=== PATIENT | female | born 1960 | race African-American/Black ===

== ENCOUNTER 2018-04-06 20:16 | Inpatient (IN) | payer MEDICAID, OTHER ==
[~2018-04-06] VITALS: Ht 165.1 cm; Wt 49.9 kg
[~2018-04-06 20:16] MED LIST: CLON0.1T14; HCTZ PO; LOSA25TA3 PO; VIC
[2018-04-06] MEDS ORDERED: SODIUM CHLORIDE 0.9% 500 ML IV ONE (21:08)
[2018-04-06 21:57] LABS: CLARITY URINE CLEAR (CLEAR); COLOR URINE YELLOW (YELLOW); KETONES URINE NEGATIVE (NEGATIVE); LEUKOCYTE ESTERASE URINE 2+ (NEGATIVE); NITRITE URINE NEGATIVE (NEGATIVE); OCCULT BLOOD URINE NEGATIVE (NEGATIVE); PROTEIN URINE 1+ (NEGATIVE); SPECIFIC GRAVITY URINE 1.013 (1.005-1.030); UROBILINOGEN URINE 0.2 E.U./dL (0.2-1.0)
[2018-04-06 22:18] LABS: *AMPHETAMINES SCREEN URINE NEGATIVE (NEGATIVE); *BARBITURATES SCREEN URINE NEGATIVE (NEGATIVE); *BENZODIAZEPINES SCREEN URINE NEGATIVE (NEGATIVE); *COCAINE SCREEN URINE NEGATIVE (NEGATIVE)
[2018-04-06 22:19] LABS: CANNABINOID URINE SCREEN PRESUMTIVE POSITIVE (NEGATIVE); METHADONE URINE SCREEN NEGATIVE (NEGATIVE); OPIATES URINE SCREEN NEGATIVE (NEGATIVE); PHENCYCLIDINE URINE SCREEN NEGATIVE (NEGATIVE)
[2018-04-06 22:48] LABS: BASOPHILS % 0.6 % (0.0-2.0); EOSINOPHILS % 1.4 % (0.0-5.0); HEMATOCRIT. 38.8 % (36.0-48.0); HEMOGLOBIN. 12.8 g/dL (12.0-16.0); LYMPHOCYTES % 23.3 % (20.0-50.0); MEAN CORPUSCULAR HEMOGLOBIN 29.9 pg (28.0-32.0); MEAN CORPUSCULAR VOLUME 90.5 fL (81.0-99.0); MEAN PLATELET VOLUME 9.6 fl (7.4-10.4); MONOCYTES % 10.2 % (2.0-8.0); NEUTROPHILS % 64.5 % (40.0-76.0); PLATELET 177 x1000/uL (130-400); RED BLOOD CELL COUNT 4.29 mill/uL (4.2-5.4); RED CELL DISTRIBUTION WIDTH 16.6 % (11.6-14.6)
[2018-04-06 22:55] LABS: CHLORIDE 107 mEq/L (98-107); ETHANOL BLOOD < 10 mg/dL
[2018-04-07] MEDS ORDERED: CEFTRIAXONE 2 G PREMIX 50 ML IV SCH (01:30)
[2018-04-07 03:51] VITALS: BP 139/79
[2018-04-07] MEDS ORDERED: NON FORMULARY PATIENT HOME MED EA PO SCH ×2 (04:45)
[2018-04-07] MEDS: SODIUM CHLORIDE 0.9% 1,000 ML IV SCH ×2 (05:12→18:55)
[2018-04-07 05:22] VITALS: BP 139/79
[2018-04-07] MEDS ORDERED: RISPERIDONE 1MG TABLET PO NR (09:00)
[2018-04-07] MEDS ORDERED: LOSARTAN POTASSIUM 25 MG TABLET PO SCH (09:00)
[2018-04-07 11:19] LABS: HEMATOCRIT 37.2 % (36.0-48.0); HEMOGLOBIN 12.3 g/dL (12.0-16.0); MEAN CORPUSCULAR HEMOGLOBIN 29.5 pg (28.0-32.0); MEAN CORPUSCULAR VOLUME 89.5 fL (81.0-99.0); PLATELET 182 x1000/uL (130-400); RED BLOOD CELL COUNT 4.15 mill/uL (4.2-5.4); RED CELL DISTRIBUTION WIDTH 16.9 % (11.6-14.6)
[2018-04-07 11:56] LABS: AMMONIA 23 uMol/L (<32)
[2018-04-07 12:00] VITALS: BP 125/70
[2018-04-07 13:35] LABS: VITAMIN B12 SERUM 633 pg/mL (211-911)
[2018-04-07] MEDS ORDERED: HYDR-2510 MT (14:15)
[2018-04-07 16:00] VITALS: BP 119/72
[2018-04-07] MEDS ORDERED: MEDICATION NOT ON FORMULARY EA (Hydrochlorothiazide 1 TAB) MT SCH (17:00)
[2018-04-07] MEDS ORDERED: HYDROCHLOROTHIAZIDE 25MG TABLET PO SCH (17:15)
[2018-04-07] MEDS ORDERED: HYDRALAZINE 20MG/ML VIAL IV PRN (17:45)
[2018-04-07 20:00] VITALS: BP 129/90
[2018-04-07] MEDS: RISPERIDONE 1MG TABLET PO SCH (20:29)
[2018-04-07] MEDS: AMLODIPINE 5MG TABLET PO SCH (20:29)
[2018-04-07] MEDS: CEFTRIAXONE 1 G PREMIX 50 ML IV SCH (23:43)
[2018-04-08 04:00] VITALS: BP 152/89
[2018-04-08 07:10] LABS: BASOPHILS % 0.9 % (0.0-2.0); EOSINOPHILS % 2.1 % (0.0-5.0); HEMATOCRIT. 37.8 % (36.0-48.0); HEMOGLOBIN. 12.4 g/dL (12.0-16.0); LYMPHOCYTES % 33.4 % (20.0-50.0); MEAN CORPUSCULAR HEMOGLOBIN 29.4 pg (28.0-32.0); MEAN CORPUSCULAR VOLUME 89.7 fL (81.0-99.0); MEAN PLATELET VOLUME 9.3 fl (7.4-10.4); NEUTROPHILS % 51.6 % (40.0-76.0); PLATELET 161 x1000/uL (130-400); RED BLOOD CELL COUNT 4.21 mill/uL (4.2-5.4); RED CELL DISTRIBUTION WIDTH 16.6 % (11.6-14.6)
[2018-04-08] MEDS: AMLODIPINE 5MG TABLET PO SCH ×2 (08:58→21:39)
[2018-04-08] MEDS: SODIUM CHLORIDE 0.9% 1,000 ML IV SCH ×2 (08:58→17:11)
[2018-04-08] MEDS: RISPERIDONE 1MG TABLET PO SCH ×2 (08:58→21:39)
[2018-04-08] MEDS ORDERED: LORAZEPAM 2MG/ML CPJ IV PRN (18:15)
[2018-04-08 21:41] VITALS: BP 163/96
[2018-04-08] MEDS: CEFTRIAXONE 1 G PREMIX 50 ML IV SCH (23:05)
[2018-04-09] VITALS: BP 142/69
[2018-04-09 04:00] VITALS: BP 138/69
[2018-04-09 08:00] VITALS: BP 164/110
[2018-04-09] MEDS: RISPERIDONE 1MG TABLET PO SCH (08:10)
[2018-04-09] MEDS: AMLODIPINE 5MG TABLET PO SCH (08:10)
[2018-04-09] MEDS: SODIUM CHLORIDE 0.9% 1,000 ML IV SCH (10:05)
[2018-04-09 12:00] VITALS: BP 164/118
[2018-04-09] MEDS ORDERED: HYDRALAZINE 10 MG in SODIUM CHLORIDE 0.9% 49.5 ML IV PRN (12:15)
[2018-04-09 13:53] VITALS: BP 147/89
== END 2018-04-09 15:30 | disposition home health service (06) | DRG 52 ==
LOC: ER 20:16 → 6WST 04-07 02:02 → EDBEDREQSVC 04-07 02:04 → EDBEDREQTM 04-07 02:04 → EDBEDREQ 04-07 02:04 → ENRESERV 04-07 02:18 → 6WST 04-07 03:15 → 6EST 04-07 21:45
PROVIDERS: ADMIT Internal Medicine; ATTEND Internal Medicine
DX: G93.40 Encephalopathy, unspecified (principal); N17.0 Acute kidney failure with tubular necrosis; N39.0 Urinary tract infection, site not specified; I10 Essential (primary) hypertension; F03.90 Unspecified dementia, unspecified severity, without behavioral disturbance, psychotic disturbance, mood disturbance, and anxiety; Z86.73 Personal history of transient ischemic attack (TIA), and cerebral infarction without residual deficits; Z88.0 Allergy status to penicillin; Z88.2 Allergy status to sulfonamides; Z91.048 Other nonmedicinal substance allergy status
CPT/HCPCS: 36415; 71045; 80048; 80061; 80305; 80307; 80329; 82140; 82607; 82962; 84443; 84484; 85027; 96361; 96365; 97162; 99285; G0482; J0360; J0696; J2060; J7030